=== PATIENT | female | born 1990 | race Caucasian/White ===

== ENCOUNTER 2020-06-04 22:33 | Emergency (ER) | payer BC ==
[~2020-06-04] VITALS: Ht 172.7 cm; Wt 63.5 kg
--- NOTE | 2020-06-04 22:46 | NUR ---
Aleja walked into ER from home with a laceration to right forearm, patient states she dropped a coffee pot, unkown when she last received a tetanus vaccine.
--- NOTE | 2020-06-04 23:02 | NUR ---
Dr. Bonilla at bedside for MSE.
[2020-06-04] MEDS ORDERED: LIDOCAINE HCL 1% 20 ML VIAL IJ ONE (23:15)
[2020-06-04] MEDS ORDERED: NEOMY/BACITRA/POLYMYXIN B OINT UD PACKET TP ONE ×2 (23:44→23:45)
--- NOTE | 2020-06-04 23:47 | NUR ---
Triple antibiotic ointment applied, and covered with band aid. Patient discharged to home in stable condition. Written and verbal after care instructions given. Patient verbalizes understanding of instructions. Stressed follow up or return to ER for worsening s/s.
[2020-06-04 23:48] VITALS: BP 133/78
== END 2020-06-04 23:49 | disposition home or self-care (01) ==
LOC: ER 22:35
DX: S61.511A Laceration without foreign body of right wrist, initial encounter (principal); W25.XXXA Contact with sharp glass, initial encounter; Y93.89 Activity, other specified; Y92.89 Other specified places as the place of occurrence of the external cause
CPT/HCPCS: A4217; A4663